=== PATIENT | male | born 1955 | race Two or more races ===

== ENCOUNTER 2024-03-28 11:37 | Inpatient (IN) | payer MEDICARE, OTHER ==
[~2024-03-28] VITALS: Ht 160 cm; Wt 72.6 kg
[2024-03-28] MEDS: MECLIZINE HCL 25 MG TAB PO ONE (12:43)
[2024-03-28 13:10] LABS: Basophils # (auto) 0 10 ^3/uL (0-0.2); Basophils % (auto) 0.4 % (0.0-2.0); Eosinophils # (auto) 0 10 ^3/uL (0-0.8); Eosinophils % (auto) 0.1 % (0.0-7.0); Hematocrit 39.5 % (41.0-53.0); Hemoglobin 13.7 g/dL (13.5-17.5); Lymphocytes # (auto) 1.2 10 ^3/uL (0.4-5.4); Lymphocytes % (auto) 14.1 % (10.0-50.0); Mean Corpuscular Hemoglobin 32.8 pg (28.0-32.0); Mean Corpuscular Hgb Conc. 34.6 g/dL (32.0-36.0); Mean Corpuscular Volume 94.9 fL (80.0-100.0); Monocytes # (auto) 0.3 10 ^3/uL (0-1.3); Monocytes % (auto) 3.8 % (0.0-12.0); Neutrophils # (auto) 6.9 10 ^3/uL (1.6-8.6); Neutrophils % (auto) 81.6 % (37.0-80.0); Red Blood Cells 4.16 10^6/uL (4.5-5.90); Red Cell Distribution Width 13.3 % (11.8-14.3); White Blood Cell 8.4 10^3/uL (4.4-10.8)
[2024-03-28 13:18] LABS: Alanine Aminotransferase 11 U/L (7-40); Albumin 3.9 g/dL (3.2-4.8); Alkaline Phosphatase 96 U/L (46-116); Anion Gap 8 (5-15); Aspartate Aminotransferase 23 U/L (13-40); BUN/Creatinine Ratio 13.4 (10.0-20.0); Blood Urea Nitrogen 11 mg/dL (9-23); Carbon Dioxide 24 mmol/L (20-30); Chloride 108 mmol/L (98-107); Glucose 170 mg/dL (74-106); LDL Cholesterol 95 mg/dL (< 100); Magnesium 1.2 mg/dL (1.6-2.6); Potassium 3.6 mmol/L (3.5-5.1); Sodium 140 mmol/L (136-145); Triglycerides 98 mg/dL (< 150)
[2024-03-28 13:19] LABS: Bilirubin, Total 0.7 mg/dL (0.2-1.0); Cholesterol 156 mg/dL (< 200); HDL Cholesterol 49 mg/dL (40-59)
[2024-03-28 13:22] LABS: Free T3 2.86 pg/mL (2.3-4.2)
[2024-03-28 13:23] LABS: Free T4 (Free Thyroxine) 1.11 ng/dL (0.89-1.76)
[2024-03-28 13:27] LABS: INR 1.01 (0.9-1.15); Partial Thromboplastin Time 23.4 SEC (24.5-34.5); Prothrombin Time 10.7 sec (9.3-11.8)
[2024-03-28] MEDS: MAGNESIUM SULFATE 1GM/100ML 100 ML IV ONE (15:56)
[2024-03-28 16:20] VITALS: PULSE 80; RESP 14; O2SAT 97
[2024-03-28] MEDS: ASPirin 325 MG TAB PO ONE (16:30)
[2024-03-28] MEDS: SODIUM CHLORIDE 0.9% 1,000 ML IV SCH (16:30)
[2024-03-28] MEDS ORDERED: NITROGLYCERIN 0.4 MG SL TAB SL PRN (16:30)
[2024-03-28] MEDS ORDERED: MECLIZINE HCL 25 MG TAB PO PRN (16:30)
[2024-03-28] MEDS: GLUCAGON EMERG KIT 1mg/1ml ONE (16:39)
[2024-03-28] MEDS: GLUCAGON EMERG KIT 1mg/1ml IV ONE (17:14)
[2024-03-28] MEDS: MAGNESIUM SULFATE 1GM/100ML 100 ML IV SCH (17:47)
[2024-03-28] MEDS: hydrALAZINE HCL 20 MG/ML VL IV PRN (23:27)
[2024-03-28 23:59] VITALS: PULSE 78
[2024-03-29] VITALS (8 sets, daily range): BP systolic 104–181; BP diastolic 66–83; PULSE 61–88; RESP 18–23; TEMP 97.6–99.5; O2SAT 90–95
[2024-03-29 05:20] LABS: Basophils # (auto) 0 10 ^3/uL (0-0.2); Basophils % (auto) 0.3 % (0.0-2.0); Eosinophils # (auto) 0 10 ^3/uL (0-0.8); Eosinophils % (auto) 0.1 % (0.0-7.0); Hematocrit 36.9 % (41.0-53.0); Lymphocytes # (auto) 1.2 10 ^3/uL (0.4-5.4); Lymphocytes % (auto) 11.6 % (10.0-50.0); Mean Corpuscular Hemoglobin 32.8 pg (28.0-32.0); Mean Corpuscular Hgb Conc. 35.2 g/dL (32.0-36.0); Mean Corpuscular Volume 93.2 fL (80.0-100.0); Monocytes # (auto) 0.5 10 ^3/uL (0-1.3); Monocytes % (auto) 4.8 % (0.0-12.0); Neutrophils # (auto) 8.6 10 ^3/uL (1.6-8.6); Neutrophils % (auto) 83.2 % (37.0-80.0); Nucleated Red Blood Cells % 0.2 %; Red Blood Cells 3.96 10^6/uL (4.5-5.90); White Blood Cell 10.3 10^3/uL (4.4-10.8)
[2024-03-29 05:38] LABS: Albumin 3.6 g/dL (3.2-4.8); Alkaline Phosphatase 86 U/L (46-116); Anion Gap 8 (5-15); Aspartate Aminotransferase 16 U/L (13-40); BUN/Creatinine Ratio 10.8 (10.0-20.0); Blood Urea Nitrogen 8 mg/dL (9-23); Calcium 8.6 mg/dL (8.7-10.4); Carbon Dioxide 26 mmol/L (20-30); Chloride 105 mmol/L (98-107); Glucose 152 mg/dL (74-106); Potassium 2.9 mmol/L (3.5-5.1); Sodium 139 mmol/L (136-145)
[2024-03-29 05:39] LABS: Bilirubin, Total 0.8 mg/dL (0.2-1.0); Total Protein 6.6 g/dL (5.7-8.2)
[2024-03-29 05:53] LABS: Alanine Aminotransferase < 9 U/L (7-40)
[2024-03-29] MEDS: ASPirin 81 mg TAB PO SCH (10:00)
[2024-03-29] MEDS: ENOXAPARIN SOD 40 MG/0.4 ML SYRINGE SC SCH (10:00)
[2024-03-30] VITALS (24 sets, daily range): BP systolic 110–176; BP diastolic 63–97; PULSE 78–130; RESP 20–36; TEMP 97.5–100.1; O2SAT 88–96
[2024-03-30] MEDS: ACETAMINOPHEN 325 MG TAB PO PRN (02:53)
[2024-03-30] MEDS: FUROSEMIDE INJECTION 10 ML ONE (08:28)
[2024-03-30] MEDS: POTASSIUM CHLORIDE 60 MEQ, LIDOCAINE 1% (LOCAL ANESTH.) 6 ML in SODIUM CHL 0.9% 500 ML IV ONE (08:30)
[2024-03-30] MEDS: methylPREDNISolone SOD SUCC 125 MG/2 ML VL ONE (08:35)
[2024-03-30] MEDS: ALBUTEROL SULF 2.5 MG/0.5ML(0.5%) NEB SOLN ONE (08:54)
[2024-03-30 09:01] LABS: Base Excess -0.7 mmol/L (-2.0-2.0)
[2024-03-30] MEDS: IPRATROPIUM BROM 0.5 MG/2.5ML INH SOL ONE (09:32)
[2024-03-30 09:38] LABS: Hematocrit 42.3 % (41.0-53.0); Hemoglobin 14.9 g/dL (13.5-17.5); Mean Corpuscular Hemoglobin 33.5 pg (28.0-32.0); Mean Corpuscular Hgb Conc. 35.3 g/dL (32.0-36.0); Mean Corpuscular Volume 94.8 fL (80.0-100.0); Red Blood Cells 4.46 10^6/uL (4.5-5.90); Red Cell Distribution Width 13.4 % (11.8-14.3); White Blood Cell 16.6 10^3/uL (4.4-10.8)
[2024-03-30 09:47] LABS: Basophils % (manual) 0 (0.0-2.0); Blast Cells 0; Eosinophils % (manual) 0 (0-7); Metamyelocytes % 0; Myelocytes % 0; Promyelocytes % 0; Reactive Lymphocytes 0
[2024-03-30] MEDS: FUROSEMIDE 100 MG/10ML VIAL IV ONE (09:51)
[2024-03-30] MEDS: methylPREDNISolone SOD SUCC 125 MG/2 ML VL IV ONE (09:54)
[2024-03-30 09:58] LABS: Albumin 4.1 g/dL (3.2-4.8); Alkaline Phosphatase 77 U/L (46-116); Anion Gap 11 (5-15); Aspartate Aminotransferase 20 U/L (13-40); Bilirubin, Total 1.8 mg/dL (0.2-1.0); Calcium 9.1 mg/dL (8.7-10.4); Carbon Dioxide 24 mmol/L (20-30); Chloride 103 mmol/L (98-107); Glucose 226 mg/dL (74-106); Magnesium 1.2 mg/dL (1.6-2.6); Potassium 3.1 mmol/L (3.5-5.1); Sodium 138 mmol/L (136-145); Total Protein 7.6 g/dL (5.7-8.2)
[2024-03-30 09:59] LABS: Alanine Aminotransferase < 9 U/L (7-40)
[2024-03-30] MEDS: FUROSEMIDE 40 MG/4 ML VIAL IV SCH (10:00)
[2024-03-30 10:10] LABS: BUN/Creatinine Ratio 13.7 (10.0-20.0); Band Neutrophils % (manual) 25; Blood Urea Nitrogen 13 mg/dL (9-23); Lymphocytes % (manual) 4 (10.0-50.0); Monocytes % (manual) 3 (0-12)
[2024-03-30 10:11] LABS: Anisocytosis Slight; Platelet Estimate Adequate
[2024-03-30] MEDS: MAGNESIUM SULFATE 1GM/100ML 100 ML IV SCH (12:53)
[2024-03-30] MEDS: ACETYLCYSTEINE 20%(200MG/ML) SOL 4ML NEB SCH (13:48)
[2024-03-30] MEDS: ALBUTEROL SULF 2.5 MG/0.5ML(0.5%) NEB SOLN NEB PRN (13:48)
[2024-03-30] MEDS: IPRATROPIUM BROM 0.5 MG/2.5ML INH SOL NEB PRN (13:48)
[2024-03-30] MEDS: PIPERACILLIN-TAZOB 3.375GM 100 ML IV SCH (14:00)
[2024-03-30] MEDS: MAGNESIUM SULFATE 1GM/100ML 100 ML IV ONE (16:20)
[2024-03-30 19:29] LABS: Base Excess -1.5 mmol/L (-2.0-2.0)
[2024-03-30] MEDS: GLYCOPYRROLATE 0.2 MG/ML 1ML VIAL IV SCH (20:07)
[2024-03-30] MEDS: LABETALOL HCL 20 MG/4 ML VL IV PRN (20:08)
[2024-03-30] MEDS: LABETALOL HCL 20 MG/4 ML VL IV ONE (20:14)
[2024-03-30] MEDS: FUROSEMIDE 40 MG/4 ML VIAL IV ONE (20:29)
[2024-03-30] MEDS: IOHEXOL 350 MG/ML 100ML IJ ONE (21:08)
[2024-03-30] MEDS: FUROSEMIDE 20 MG/2 ML VIAL IV ONE (23:51)
[2024-03-31] VITALS (75 sets, daily range): BP systolic 91–170; BP diastolic 60–102; PULSE 80–130; RESP 14–34; TEMP 98.4–100.2; O2SAT 90–100
[2024-03-31] MEDS: LORazepam 2MG/ML-1ML VIAL ONE (02:35)
[2024-03-31] MEDS: LORazepam 2MG/ML-1ML VIAL IV ONE (02:35)
[2024-03-31 02:54] LABS: Base Excess 1.8 mmol/L (-2.0-2.0)
[2024-03-31 04:29] LABS: Urine Bacteria None Seen /hpf (None Seen)
[2024-03-31 05:03] LABS: Urine Blood TRACE /uL (Negative); Urine Clarity Clear (Clear); Urine Color Light-Yellow (Yellow); Urine Protein, UAD TRACE (Negative); Urine Urobilinogen Normal (Negative); Urine WBC <1 /hpf (0 - 3)
[2024-03-31 06:01] LABS: Anion Gap 10 (5-15); Carbon Dioxide 23 mmol/L (20-30); Chloride 105 mmol/L (98-107); Potassium 3.6 mmol/L (3.5-5.1); Sodium 138 mmol/L (136-145)
[2024-03-31 06:02] LABS: Calcium 9.2 mg/dL (8.7-10.4)
[2024-03-31 06:07] LABS: BUN/Creatinine Ratio 12.6 (10.0-20.0); Blood Urea Nitrogen 16 mg/dL (9-23); Glucose 194 mg/dL (74-106); Magnesium 2.2 mg/dL (1.6-2.6)
[2024-03-31 06:19] LABS: Basophils # (auto) 0 10 ^3/uL (0-0.2); Basophils % (auto) 0.1 % (0.0-2.0); Eosinophils # (auto) 0 10 ^3/uL (0-0.8); Hematocrit 43.5 % (41.0-53.0); Hemoglobin 14.5 g/dL (13.5-17.5); Lymphocytes # (auto) 0.6 10 ^3/uL (0.4-5.4); Lymphocytes % (auto) 7.1 % (10.0-50.0); Mean Corpuscular Hemoglobin 32.3 pg (28.0-32.0); Mean Corpuscular Hgb Conc. 33.3 g/dL (32.0-36.0); Mean Corpuscular Volume 97.1 fL (80.0-100.0); Monocytes # (auto) 0.3 10 ^3/uL (0-1.3); Monocytes % (auto) 3.6 % (0.0-12.0); Neutrophils # (auto) 7.8 10 ^3/uL (1.6-8.6); Neutrophils % (auto) 89.2 % (37.0-80.0); Nucleated Red Blood Cells % 0.1 %; Red Blood Cells 4.48 10^6/uL (4.5-5.90); Red Cell Distribution Width 13.8 % (11.8-14.3); White Blood Cell 8.8 10^3/uL (4.4-10.8)
[2024-03-31] MEDS: ETOMIDATE (2MG/ML) 20ML VIAL IV ONE ×2 (09:45→09:56)
[2024-03-31] MEDS: ROCURONIUM 10MG/ML 10ML VIAL IV ONE ×2 (09:45→09:56)
[2024-03-31] MEDS: POTASSIUM CHL 20MEQ/100ML 100 ML IV SCH ×2 (13:52→18:43)
[2024-03-31 15:19] LABS: Base Excess 3.9 mmol/L (-2.0-2.0)
[2024-04-01] VITALS (103 sets, daily range): BP systolic 88–197; BP diastolic 53–103; PULSE 76–133; RESP 14–28; TEMP 97.8–99.2; O2SAT 93–99
[2024-04-01 04:11] LABS: Basophils # (auto) 0 10 ^3/uL (0-0.2); Basophils % (auto) 0.1 % (0.0-2.0); Eosinophils # (auto) 0 10 ^3/uL (0-0.8); Eosinophils % (auto) 0.1 % (0.0-7.0); Hematocrit 36.6 % (41.0-53.0); Hemoglobin 12.7 g/dL (13.5-17.5); Lymphocytes # (auto) 1.2 10 ^3/uL (0.4-5.4); Lymphocytes % (auto) 14.6 % (10.0-50.0); Mean Corpuscular Hemoglobin 33.3 pg (28.0-32.0); Mean Corpuscular Hgb Conc. 34.7 g/dL (32.0-36.0); Mean Corpuscular Volume 96.1 fL (80.0-100.0); Monocytes # (auto) 0.4 10 ^3/uL (0-1.3); Monocytes % (auto) 4.9 % (0.0-12.0); Neutrophils # (auto) 6.3 10 ^3/uL (1.6-8.6); Neutrophils % (auto) 80.3 % (37.0-80.0); Nucleated Red Blood Cells % 0.1 %; Red Blood Cells 3.81 10^6/uL (4.5-5.90); Red Cell Distribution Width 13.3 % (11.8-14.3); White Blood Cell 7.9 10^3/uL (4.4-10.8)
[2024-04-01 04:25] LABS: Albumin 3.5 g/dL (3.2-4.8); Alkaline Phosphatase 41 U/L (46-116); Anion Gap 11 (5-15); Aspartate Aminotransferase 15 U/L (13-40); Bilirubin, Total 0.9 mg/dL (0.2-1.0); Calcium 9.7 mg/dL (8.7-10.4); Carbon Dioxide 27 mmol/L (20-30); Chloride 105 mmol/L (98-107); Glucose 178 mg/dL (74-106); Potassium 2.7 mmol/L (3.5-5.1); Sodium 143 mmol/L (136-145); Total Protein 6.8 g/dL (5.7-8.2)
[2024-04-01 04:35] LABS: Alanine Aminotransferase < 9 U/L (7-40); Blood Urea Nitrogen 38 mg/dL (9-23)
[2024-04-01 07:32] LABS: Base Excess 0.6 mmol/L (-2.0-2.0)
[2024-04-01] MEDS ORDERED: POTASSIUM CHL 20MEQ/100ML 100 ML IV SCH (08:30)
[2024-04-01] MEDS: MAGNESIUM SULFATE 1GM/100ML 100 ML IV SCH (09:49)
[2024-04-01 10:45] LABS: Creatinine, Urine 128.84 mg/dL (30.0-125.0)
[2024-04-01 10:56] LABS: Base Excess 4.8 mmol/L (-2.0-2.0)
[2024-04-01] MEDS: SODIUM CHLORIDE 0.9% 1,000 ML IV SCH (11:53)
[2024-04-01] MEDS: MORPHINE SULFATE INJ 2 MG/ml SYRG IV PRN (18:41)
[2024-04-02] VITALS (48 sets, daily range): BP systolic 125–178; BP diastolic 67–127; PULSE 82–112; RESP 14–25; TEMP 97.8–98.9; O2SAT 92–98
[2024-04-02 04:53] LABS: Anion Gap 11 (5-15); Calcium 9.5 mg/dL (8.7-10.4); Carbon Dioxide 29 mmol/L (20-30); Chloride 107 mmol/L (98-107); Potassium 3.3 mmol/L (3.5-5.1); Sodium 147 mmol/L (136-145)
[2024-04-02 04:58] LABS: Basophils # (auto) 0 10 ^3/uL (0-0.2); Basophils % (auto) 0.1 % (0.0-2.0); Eosinophils # (auto) 0 10 ^3/uL (0-0.8); Hematocrit 38.4 % (41.0-53.0); Monocytes # (auto) 0.6 10 ^3/uL (0-1.3)
[2024-04-02 04:59] LABS: Blood Urea Nitrogen 40 mg/dL (9-23); Glucose 205 mg/dL (74-106)
[2024-04-02 05:01] LABS: Hemoglobin 13.3 g/dL (13.5-17.5); Lymphocytes % (auto) 9.8 % (10.0-50.0); Mean Corpuscular Hemoglobin 33.6 pg (28.0-32.0); Mean Corpuscular Hgb Conc. 34.7 g/dL (32.0-36.0); Mean Corpuscular Volume 96.7 fL (80.0-100.0); Monocytes % (auto) 5.7 % (0.0-12.0); Neutrophils # (auto) 8.6 10 ^3/uL (1.6-8.6); Neutrophils % (auto) 84.4 % (37.0-80.0); Nucleated Red Blood Cells % 0.1 %; Red Blood Cells 3.97 10^6/uL (4.5-5.90); Red Cell Distribution Width 13.6 % (11.8-14.3); White Blood Cell 10.2 10^3/uL (4.4-10.8)
[2024-04-02] MEDS: POTASSIUM CHLORIDE 40 MEQ, LIDOCAINE 1% (LOCAL ANESTH.) 4 ML in SODIUM CHL 0.9% 250 ML IV ONE (09:43)
[2024-04-02] MEDS: LORazepam 2MG/ML-1ML VIAL IV PRN (15:49)
[2024-04-02] MEDS ORDERED: CARVEDILOL 12.5 MG TAB PO SCH (22:00)
[2024-04-02] MEDS ORDERED: NIFEdipine ER 30 MG TAB PO SCH (22:00)
[2024-04-02] MEDS: MORPHINE SULFATE INJ 2 MG/ml SYRG IV PRN (22:32)
[2024-04-03] VITALS (28 sets, daily range): BP systolic 141–178; BP diastolic 86–108; PULSE 77–113; RESP 12–24; TEMP 97–98.3; O2SAT 91–99
[2024-04-03 05:17] LABS: Chloride 113 mmol/L (98-107); Potassium 3.9 mmol/L (3.5-5.1)
[2024-04-03 05:18] LABS: Anion Gap 7 (5-15); Carbon Dioxide 34 mmol/L (20-30)
[2024-04-03 05:23] LABS: Glucose 218 mg/dL (74-106)
[2024-04-03 05:24] LABS: BUN/Creatinine Ratio 30.6 (10.0-20.0); Blood Urea Nitrogen 34 mg/dL (9-23); Magnesium 2.1 mg/dL (1.6-2.6)
[2024-04-03 05:26] LABS: Hematocrit 40.3 % (41.0-53.0); Hemoglobin 13.7 g/dL (13.5-17.5); Mean Corpuscular Hemoglobin 32.7 pg (28.0-32.0); Mean Corpuscular Volume 96.3 fL (80.0-100.0); Red Blood Cells 4.19 10^6/uL (4.5-5.90); Red Cell Distribution Width 14.2 % (11.8-14.3); White Blood Cell 9.3 10^3/uL (4.4-10.8)
[2024-04-03 05:33] LABS: Basophils % (manual) 0 (0.0-2.0); Blast Cells 0; Eosinophils % (manual) 0 (0-7); Metamyelocytes % 0; Myelocytes % 0; Promyelocytes % 0; Reactive Lymphocytes 0
[2024-04-03 05:39] LABS: Sodium 154 mmol/L (136-145)
[2024-04-03] MEDS: Jevity 1.2 Cal/Fiber 1 Liter GT SCH (06:09)
[2024-04-03] MEDS: FREE WATER GT SCH (07:45)
[2024-04-03 08:12] LABS: Band Neutrophils % (manual) 1; Lymphocytes % (manual) 8 (10.0-50.0); Monocytes % (manual) 5 (0-12); Platelet Estimate Adequate; RBC Morphology Normal
[2024-04-03] MEDS ORDERED: GLYCOPYRROLATE 0.2 MG/ML 1ML VIAL IV PRN (09:30)
[2024-04-03] MEDS: ASPirin 81 mg TAB PO SCH (10:04)
[2024-04-03] MEDS: ENOXAPARIN SOD 40 MG/0.4 ML SYRINGE SC SCH (10:05)
[2024-04-03] MEDS: FUROSEMIDE 40 MG/4 ML VIAL IV ONE (10:05)
[2024-04-04] VITALS (25 sets, daily range): BP systolic 122–162; BP diastolic 75–111; PULSE 101–116; RESP 14–27; TEMP 97.3–98.4; O2SAT 88–98
[2024-04-04 04:40] LABS: Chloride 112 mmol/L (98-107); Potassium 3.7 mmol/L (3.5-5.1); Sodium 153 mmol/L (136-145)
[2024-04-04 04:41] LABS: Anion Gap 9 (5-15); Calcium 10.1 mg/dL (8.7-10.4); Carbon Dioxide 32 mmol/L (20-30)
[2024-04-04 04:46] LABS: BUN/Creatinine Ratio 28.6 (10.0-20.0); Blood Urea Nitrogen 32 mg/dL (9-23); Glucose 301 mg/dL (74-106)
[2024-04-04 04:50] LABS: Basophils # (auto) 0 10 ^3/uL (0-0.2); Basophils % (auto) 0.1 % (0.0-2.0); Eosinophils # (auto) 0 10 ^3/uL (0-0.8); Eosinophils % (auto) 0.4 % (0.0-7.0); Hematocrit 42.8 % (41.0-53.0); Hemoglobin 14.2 g/dL (13.5-17.5); Lymphocytes # (auto) 1.2 10 ^3/uL (0.4-5.4); Mean Corpuscular Hemoglobin 32.3 pg (28.0-32.0); Mean Corpuscular Hgb Conc. 33.1 g/dL (32.0-36.0); Mean Corpuscular Volume 97.6 fL (80.0-100.0); Monocytes # (auto) 0.6 10 ^3/uL (0-1.3); Neutrophils # (auto) 8.8 10 ^3/uL (1.6-8.6); Neutrophils % (auto) 82.5 % (37.0-80.0); Nucleated Red Blood Cells % 0.1 %; Red Blood Cells 4.39 10^6/uL (4.5-5.90); Red Cell Distribution Width 14.4 % (11.8-14.3); White Blood Cell 10.6 10^3/uL (4.4-10.8)
[2024-04-04] MEDS: FUROSEMIDE 40 MG/4 ML VIAL IV ONE (08:01)
[2024-04-04] MEDS: IOHEXOL 350 MG/ML 100ML IJ ONE ×2 (09:32→09:58)
[2024-04-04] MEDS: FREE WATER GT SCH (10:00)
[2024-04-05] VITALS (33 sets, daily range): BP systolic 100–145; BP diastolic 65–92; PULSE 67–123; RESP 11–27; TEMP 97.3–98.8; O2SAT 88–100
[2024-04-05 05:06] LABS: Basophils # (auto) 0 10 ^3/uL (0-0.2); Basophils % (auto) 0.2 % (0.0-2.0); Eosinophils # (auto) 0.1 10 ^3/uL (0-0.8); Eosinophils % (auto) 1.2 % (0.0-7.0); Hematocrit 41.3 % (41.0-53.0); Hemoglobin 13.8 g/dL (13.5-17.5); Lymphocytes # (auto) 1.4 10 ^3/uL (0.4-5.4); Lymphocytes % (auto) 12.8 % (10.0-50.0); Mean Corpuscular Hemoglobin 32.6 pg (28.0-32.0); Mean Corpuscular Hgb Conc. 33.4 g/dL (32.0-36.0); Mean Corpuscular Volume 97.4 fL (80.0-100.0); Monocytes # (auto) 0.6 10 ^3/uL (0-1.3); Monocytes % (auto) 5.9 % (0.0-12.0); Neutrophils # (auto) 8.7 10 ^3/uL (1.6-8.6); Neutrophils % (auto) 79.9 % (37.0-80.0); Red Blood Cells 4.25 10^6/uL (4.5-5.90); Red Cell Distribution Width 13.8 % (11.8-14.3); White Blood Cell 10.9 10^3/uL (4.4-10.8)
[2024-04-05 05:23] LABS: Anion Gap 8 (5-15); Carbon Dioxide 34 mmol/L (20-30); Chloride 110 mmol/L (98-107); Potassium 3.6 mmol/L (3.5-5.1); Sodium 152 mmol/L (136-145)
[2024-04-05 05:24] LABS: Calcium 9.7 mg/dL (8.7-10.4)
[2024-04-05 05:29] LABS: BUN/Creatinine Ratio 28.9 (10.0-20.0); Glucose 357 mg/dL (74-106)
[2024-04-05 05:30] LABS: Blood Urea Nitrogen 43 mg/dL (9-23)
[2024-04-05] MEDS: FUROSEMIDE 40 MG/4 ML VIAL IV SCH (06:10)
[2024-04-05] MEDS ORDERED: FUROSEMIDE 40 MG/4 ML VIAL IV SCH (10:00)
[2024-04-05] MEDS ORDERED: DEXTROSE (50%) 50ML SYRG IV PRN (10:45)
[2024-04-05] MEDS: InsuLIN REG 1unit/0.01ml Soln (100units/ml) SC SCH (12:16)
[2024-04-05] MEDS: ACCU-CHEK COMFORT CURVE STRIP VI SCH (12:18)
[2024-04-05] MEDS: D5W/SOD CHL 0.45% 1,000 ML IV SCH (13:00)
[2024-04-06] VITALS (50 sets, daily range): BP systolic 102–149; BP diastolic 61–91; PULSE 76–104; RESP 11–20; TEMP 96.9–98.9; O2SAT 79–100
[2024-04-06 05:54] LABS: Basophils # (auto) 0 10 ^3/uL (0-0.2); Basophils % (auto) 0.2 % (0.0-2.0); Eosinophils # (auto) 0.4 10 ^3/uL (0-0.8); Eosinophils % (auto) 3.7 % (0.0-7.0); Hematocrit 42.6 % (41.0-53.0); Hemoglobin 13.9 g/dL (13.5-17.5); Lymphocytes # (auto) 1.6 10 ^3/uL (0.4-5.4); Lymphocytes % (auto) 14.1 % (10.0-50.0); Mean Corpuscular Hemoglobin 32.1 pg (28.0-32.0); Mean Corpuscular Hgb Conc. 32.6 g/dL (32.0-36.0); Mean Corpuscular Volume 98.4 fL (80.0-100.0); Monocytes # (auto) 0.6 10 ^3/uL (0-1.3); Neutrophils # (auto) 8.9 10 ^3/uL (1.6-8.6); Nucleated Red Blood Cells % 0.1 %; Red Blood Cells 4.33 10^6/uL (4.5-5.90); Red Cell Distribution Width 14.1 % (11.8-14.3); White Blood Cell 11.5 10^3/uL (4.4-10.8)
[2024-04-06 06:11] LABS: Albumin 3.6 g/dL (3.2-4.8); Alkaline Phosphatase 68 U/L (46-116); Anion Gap 7 (5-15); Aspartate Aminotransferase 18 U/L (13-40); BUN/Creatinine Ratio 32.2 (10.0-20.0); Blood Urea Nitrogen 38 mg/dL (9-23); Calcium 9.7 mg/dL (8.7-10.4); Carbon Dioxide 36 mmol/L (20-30); Chloride 112 mmol/L (98-107); Magnesium 2.2 mg/dL (1.6-2.6); Potassium 3.4 mmol/L (3.5-5.1); Sodium 155 mmol/L (136-145)
[2024-04-06 06:12] LABS: Alanine Aminotransferase < 9 U/L (7-40); Bilirubin, Total 0.6 mg/dL (0.2-1.0); Glucose 162 mg/dL (74-106); Total Protein 7.3 g/dL (5.7-8.2)
[2024-04-06] MEDS: FUROSEMIDE 40 MG/4 ML VIAL IV ONE (11:07)
[2024-04-06] MEDS: D5W 5% 1,000 ML IV SCH (11:08)
[2024-04-06] MEDS: POTASSIUM CHL 20MEQ/100ML 100 ML IV SCH (14:29)
[2024-04-07] VITALS (33 sets, daily range): BP systolic 100–164; BP diastolic 50–98; PULSE 78–106; RESP 11–22; TEMP 97.6–98.5; O2SAT 93–100
[2024-04-07 05:37] LABS: Basophils # (auto) 0 10 ^3/uL (0-0.2); Basophils % (auto) 0.3 % (0.0-2.0); Eosinophils # (auto) 0.4 10 ^3/uL (0-0.8); Eosinophils % (auto) 3.2 % (0.0-7.0); Hemoglobin 13.4 g/dL (13.5-17.5); Lymphocytes # (auto) 1.9 10 ^3/uL (0.4-5.4); Lymphocytes % (auto) 14.4 % (10.0-50.0); Mean Corpuscular Hemoglobin 32.9 pg (28.0-32.0); Mean Corpuscular Hgb Conc. 33.5 g/dL (32.0-36.0); Mean Corpuscular Volume 98.2 fL (80.0-100.0); Monocytes # (auto) 0.6 10 ^3/uL (0-1.3); Monocytes % (auto) 4.9 % (0.0-12.0); Neutrophils # (auto) 10.1 10 ^3/uL (1.6-8.6); Neutrophils % (auto) 77.2 % (37.0-80.0); Nucleated Red Blood Cells % 0.1 %; Red Blood Cells 4.08 10^6/uL (4.5-5.90); Red Cell Distribution Width 13.5 % (11.8-14.3)
[2024-04-07 05:39] LABS: Chloride 111 mmol/L (98-107); Potassium 3.5 mmol/L (3.5-5.1); Sodium 148 mmol/L (136-145)
[2024-04-07 05:40] LABS: Anion Gap 6 (5-15); Calcium 9.6 mg/dL (8.7-10.4); Carbon Dioxide 31 mmol/L (20-30)
[2024-04-07 05:45] LABS: BUN/Creatinine Ratio 22.3 (10.0-20.0); Blood Urea Nitrogen 29 mg/dL (9-23); Glucose 132 mg/dL (74-106)
[2024-04-07 05:46] LABS: Magnesium 1.9 mg/dL (1.6-2.6)
[2024-04-07] MEDS: FUROSEMIDE 40 MG/4 ML VIAL IV SCH (09:17)
[2024-04-07] MEDS: SODIUM CHLORIDE 0.9% 500 ML IV ONE (13:15)
[2024-04-08] VITALS (31 sets, daily range): BP systolic 102–147; BP diastolic 63–91; PULSE 68–93; RESP 10–20; TEMP 97.6–98.1; O2SAT 91–100
[2024-04-08 05:23] LABS: Basophils # (auto) 0 10 ^3/uL (0-0.2); Basophils % (auto) 0.4 % (0.0-2.0); Eosinophils # (auto) 0.3 10 ^3/uL (0-0.8); Eosinophils % (auto) 2.7 % (0.0-7.0); Hematocrit 37.5 % (41.0-53.0); Hemoglobin 12.6 g/dL (13.5-17.5); Lymphocytes # (auto) 1.6 10 ^3/uL (0.4-5.4); Lymphocytes % (auto) 15.5 % (10.0-50.0); Mean Corpuscular Hemoglobin 32.4 pg (28.0-32.0); Mean Corpuscular Hgb Conc. 33.4 g/dL (32.0-36.0); Mean Corpuscular Volume 96.7 fL (80.0-100.0); Monocytes # (auto) 0.4 10 ^3/uL (0-1.3); Monocytes % (auto) 4.2 % (0.0-12.0); Neutrophils # (auto) 8.2 10 ^3/uL (1.6-8.6); Neutrophils % (auto) 77.2 % (37.0-80.0); Nucleated Red Blood Cells % 0.1 %; Red Blood Cells 3.88 10^6/uL (4.5-5.90); Red Cell Distribution Width 13.4 % (11.8-14.3); White Blood Cell 10.6 10^3/uL (4.4-10.8)
[2024-04-08 05:59] LABS: Albumin 3.2 g/dL (3.2-4.8); Alkaline Phosphatase 68 U/L (46-116); Anion Gap 6 (5-15); Aspartate Aminotransferase 19 U/L (13-40); BUN/Creatinine Ratio 27.6 (10.0-20.0); Blood Urea Nitrogen 34 mg/dL (9-23); Calcium 9.2 mg/dL (8.7-10.4); Carbon Dioxide 33 mmol/L (20-30); Chloride 108 mmol/L (98-107); Glucose 190 mg/dL (74-106); Magnesium 1.9 mg/dL (1.6-2.6); Potassium 3.2 mmol/L (3.5-5.1); Sodium 147 mmol/L (136-145)
[2024-04-08 06:00] LABS: Bilirubin, Total 1.2 mg/dL (0.2-1.0); Total Protein 6.8 g/dL (5.7-8.2)
[2024-04-08 06:02] LABS: Alanine Aminotransferase < 9 U/L (7-40)
[2024-04-08] MEDS: POTASSIUM CHLORIDE 40 MEQ, LIDOCAINE 1% (LOCAL ANESTH.) 4 ML in SODIUM CHL 0.9% 250 ML IV ONE (10:10)
[2024-04-08] MEDS ORDERED: CLINIMIX PER PHARMACY 0 ML IV SCH (14:15)
[2024-04-08] MEDS ORDERED: DEXTROSE (50%) 50ML SYRG IV SCH (15:30)
[2024-04-08] MEDS: ACCU-CHEK COMFORT CURVE STRIP VI SCH (17:54)
[2024-04-08] MEDS: InsuLIN REG 1unit/0.01ml Soln (100units/ml) SC SCH (18:00)
[2024-04-08] MEDS: AMINO ACID INFUSION IN D10W 1,000 ML IV SCH (20:15)
[2024-04-09] VITALS (31 sets, daily range): BP systolic 95–162; BP diastolic 51–86; PULSE 68–90; RESP 9–23; TEMP 97.6–98.5; O2SAT 92–100
[2024-04-09] MEDS: D5W 5% 1,000 ML IV SCH ×2 (00:50→08:40)
[2024-04-09 05:29] LABS: Albumin 3.2 g/dL (3.2-4.8); Alkaline Phosphatase 69 U/L (46-116); Anion Gap 4 (5-15); Aspartate Aminotransferase 20 U/L (13-40); BUN/Creatinine Ratio 22.7 (10.0-20.0); Bilirubin, Total 1.2 mg/dL (0.2-1.0); Blood Urea Nitrogen 29 mg/dL (9-23); Calcium 9.1 mg/dL (8.7-10.4); Carbon Dioxide 34 mmol/L (20-30); Chloride 109 mmol/L (98-107); Glucose 185 mg/dL (74-106); Magnesium 1.9 mg/dL (1.6-2.6); Phosphorus 2.6 mg/dL (2.4-5.1); Potassium 3.3 mmol/L (3.5-5.1); Sodium 147 mmol/L (136-145)
[2024-04-09 05:30] LABS: Alanine Aminotransferase < 9 U/L (7-40); Total Protein 6.6 g/dL (5.7-8.2)
[2024-04-09] MEDS: POTASSIUM CHLORIDE 40 MEQ, LIDOCAINE 1% (LOCAL ANESTH.) 4 ML in SODIUM CHL 0.9% 250 ML IV ONE (08:36)
[2024-04-10] VITALS (17 sets, daily range): BP systolic 94–162; BP diastolic 48–118; PULSE 70–84; RESP 11–18; TEMP 97.6–98.4; O2SAT 92–100
[2024-04-10 05:35] LABS: Basophils # (auto) 0 10 ^3/uL (0-0.2); Basophils % (auto) 0.4 % (0.0-2.0); Eosinophils # (auto) 0.1 10 ^3/uL (0-0.8); Eosinophils % (auto) 1.3 % (0.0-7.0); Hematocrit 35.1 % (41.0-53.0); Hemoglobin 12.1 g/dL (13.5-17.5); Lymphocytes % (auto) 9.9 % (10.0-50.0); Mean Corpuscular Hemoglobin 32.9 pg (28.0-32.0); Mean Corpuscular Hgb Conc. 34.5 g/dL (32.0-36.0); Mean Corpuscular Volume 95.3 fL (80.0-100.0); Monocytes # (auto) 0.4 10 ^3/uL (0-1.3); Monocytes % (auto) 4.2 % (0.0-12.0); Neutrophils # (auto) 8.7 10 ^3/uL (1.6-8.6); Neutrophils % (auto) 84.2 % (37.0-80.0); Red Blood Cells 3.68 10^6/uL (4.5-5.90); Red Cell Distribution Width 12.9 % (11.8-14.3); White Blood Cell 10.3 10^3/uL (4.4-10.8)
[2024-04-10 05:39] LABS: Alanine Aminotransferase 11 U/L (7-40); Albumin 3.1 g/dL (3.2-4.8); Alkaline Phosphatase 74 U/L (46-116); Anion Gap 5 (5-15); Aspartate Aminotransferase 27 U/L (13-40); BUN/Creatinine Ratio 23.7 (10.0-20.0); Blood Urea Nitrogen 23 mg/dL (9-23); Calcium 8.8 mg/dL (8.7-10.4); Carbon Dioxide 29 mmol/L (20-30); Chloride 105 mmol/L (98-107); Glucose 247 mg/dL (74-106); Magnesium 1.5 mg/dL (1.6-2.6); Potassium 3.1 mmol/L (3.5-5.1); Sodium 139 mmol/L (136-145)
[2024-04-10 05:40] LABS: Bilirubin, Total 1.2 mg/dL (0.2-1.0); Phosphorus 1.8 mg/dL (2.4-5.1); Total Protein 6.6 g/dL (5.7-8.2)
[2024-04-10] MEDS: POTASSIUM CHL 20MEQ/100ML 100 ML IV ONE ×2 (07:02→11:16)
[2024-04-10] MEDS: MAGNESIUM SULFATE 1GM/100ML 100 ML IV SCH (09:11)
[2024-04-10] MEDS: POTASSIUM PHOSPHATE 17.6 MEQ in SODIUM CHL 0.9% 100 ML IV ONE (11:07)
[2024-04-11] VITALS (13 sets, daily range): BP systolic 90–108; BP diastolic 54–64; PULSE 20–79; RESP 15–71; TEMP 97.4–98.7; O2SAT 90–99
[2024-04-11 07:10] LABS: Basophils # (auto) 0.1 10 ^3/uL (0-0.2); Basophils % (auto) 0.7 % (0.0-2.0); Eosinophils # (auto) 0.2 10 ^3/uL (0-0.8); Eosinophils % (auto) 2.1 % (0.0-7.0); Hematocrit 31.2 % (41.0-53.0); Lymphocytes # (auto) 1.3 10 ^3/uL (0.4-5.4); Lymphocytes % (auto) 13.8 % (10.0-50.0); Mean Corpuscular Hemoglobin 32.9 pg (28.0-32.0); Mean Corpuscular Hgb Conc. 35.2 g/dL (32.0-36.0); Mean Corpuscular Volume 93.4 fL (80.0-100.0); Monocytes # (auto) 0.5 10 ^3/uL (0-1.3); Neutrophils # (auto) 7.3 10 ^3/uL (1.6-8.6); Neutrophils % (auto) 78.4 % (37.0-80.0); Nucleated Red Blood Cells % 0.1 %; Red Blood Cells 3.35 10^6/uL (4.5-5.90); Red Cell Distribution Width 12.6 % (11.8-14.3); White Blood Cell 9.3 10^3/uL (4.4-10.8)
[2024-04-11 07:28] LABS: Alanine Aminotransferase 11 U/L (7-40); Alkaline Phosphatase 79 U/L (46-116); Anion Gap 6 (5-15); Aspartate Aminotransferase 27 U/L (13-40); BUN/Creatinine Ratio 21.6 (10.0-20.0); Blood Urea Nitrogen 22 mg/dL (9-23); Calcium 8.7 mg/dL (8.7-10.4); Carbon Dioxide 30 mmol/L (20-30); Chloride 102 mmol/L (98-107); Glucose 152 mg/dL (74-106); Magnesium 1.4 mg/dL (1.6-2.6); Phosphorus 2.1 mg/dL (2.4-5.1); Potassium 3.1 mmol/L (3.5-5.1); Sodium 138 mmol/L (136-145); Total Protein 6.3 g/dL (5.7-8.2)
[2024-04-11] MEDS: POTASSIUM CHL 20MEQ/100ML 100 ML IV SCH (11:31)
[2024-04-11 11:44] LABS: Hemoglobin 10.9 g/dL (13.5-17.5)
[2024-04-11] MEDS: MAGNESIUM SULFATE 1GM/100ML 100 ML IV SCH (16:45)
[2024-04-11 17:56] LABS: Hematocrit 31.1 % (41.0-53.0); Hemoglobin 10.7 g/dL (13.5-17.5)
[2024-04-11] MEDS: POTASSIUM PHOSPHATE 22 MEQ in SODIUM CHL 0.9% 100 ML IV ONE (18:00)
[2024-04-11 23:21] LABS: Hematocrit 32.3 % (41.0-53.0); Hemoglobin 11.3 g/dL (13.5-17.5)
[2024-04-12] VITALS (12 sets, daily range): BP systolic 94–114; BP diastolic 51–74; PULSE 60–79; RESP 16–20; TEMP 97.2–98.7; O2SAT 94–98
[2024-04-12 07:11] LABS: Alanine Aminotransferase 10 U/L (7-40); Albumin 2.9 g/dL (3.2-4.8); Alkaline Phosphatase 79 U/L (46-116); Aspartate Aminotransferase 22 U/L (13-40); BUN/Creatinine Ratio 18.9 (10.0-20.0); Blood Urea Nitrogen 17 mg/dL (9-23); Calcium 8.5 mg/dL (8.7-10.4); Chloride 105 mmol/L (98-107); Glucose 195 mg/dL (74-106); Magnesium 1.6 mg/dL (1.6-2.6); Potassium 3.6 mmol/L (3.5-5.1); Sodium 137 mmol/L (136-145)
[2024-04-12 07:13] LABS: Bilirubin, Total 0.6 mg/dL (0.2-1.0); Phosphorus 1.6 mg/dL (2.4-5.1); Total Protein 6.1 g/dL (5.7-8.2)
[2024-04-12 07:18] LABS: Basophils # (auto) 0 10 ^3/uL (0-0.2); Basophils % (auto) 0.6 % (0.0-2.0); Eosinophils # (auto) 0.1 10 ^3/uL (0-0.8); Eosinophils % (auto) 1.8 % (0.0-7.0); Hematocrit 29.9 % (41.0-53.0); Hemoglobin 10.5 g/dL (13.5-17.5); Lymphocytes # (auto) 1.1 10 ^3/uL (0.4-5.4); Mean Corpuscular Hemoglobin 33.1 pg (28.0-32.0); Mean Corpuscular Hgb Conc. 35.3 g/dL (32.0-36.0); Monocytes # (auto) 0.5 10 ^3/uL (0-1.3); Monocytes % (auto) 5.8 % (0.0-12.0); Neutrophils # (auto) 6.3 10 ^3/uL (1.6-8.6); Neutrophils % (auto) 77.8 % (37.0-80.0); Nucleated Red Blood Cells % 0.1 %; Red Blood Cells 3.18 10^6/uL (4.5-5.90); Red Cell Distribution Width 12.6 % (11.8-14.3); White Blood Cell 8.1 10^3/uL (4.4-10.8)
[2024-04-12 07:28] LABS: Anion Gap 6 (5-15); Carbon Dioxide 26 mmol/L (20-30)
[2024-04-12] MEDS: MAGNESIUM SULFATE 1GM/100ML 100 ML IV SCH (15:50)
[2024-04-12] MEDS: POTASSIUM PHOSPHATE 44 MEQ in D5W 5% 250 ML IV ONE (18:01)
[2024-04-13] VITALS (13 sets, daily range): BP systolic 106–142; BP diastolic 65–81; PULSE 68–110; RESP 14–22; TEMP 97.6–98.7; O2SAT 92–100
[2024-04-13 07:21] LABS: Potassium 3.5 mmol/L (3.5-5.1)
[2024-04-13 07:22] LABS: Calcium 8.9 mg/dL (8.7-10.4)
[2024-04-13 07:27] LABS: BUN/Creatinine Ratio 13.9 (10.0-20.0); Magnesium 1.6 mg/dL (1.6-2.6)
[2024-04-13 07:28] LABS: Albumin 3.2 g/dL (3.2-4.8)
[2024-04-13 07:29] LABS: Phosphorus 2.3 mg/dL (2.4-5.1)
[2024-04-13] MEDS: POTASSIUM PHOSPHATE 26.4 MEQ in SODIUM CHL 0.9% 100 ML IV ONE (09:45)
[2024-04-13] MEDS: MAGNESIUM SULFATE 1GM/100ML 100 ML IV SCH (18:43)
[2024-04-14] VITALS (13 sets, daily range): BP systolic 108–148; BP diastolic 60–90; PULSE 69–89; RESP 16–20; TEMP 97.5–98.4; O2SAT 91–97
[2024-04-14 08:38] LABS: Alanine Aminotransferase 12 U/L (7-40); Albumin 3.4 g/dL (3.2-4.8); Alkaline Phosphatase 109 U/L (46-116); Anion Gap 4 (5-15); Aspartate Aminotransferase 29 U/L (13-40); BUN/Creatinine Ratio 18.4 (10.0-20.0); Bilirubin, Total 0.5 mg/dL (0.2-1.0); Blood Urea Nitrogen 14 mg/dL (9-23); Carbon Dioxide 28 mmol/L (20-30); Chloride 103 mmol/L (98-107); Glucose 177 mg/dL (74-106); Magnesium 1.6 mg/dL (1.6-2.6); Phosphorus 2.2 mg/dL (2.4-5.1); Potassium 3.5 mmol/L (3.5-5.1); Sodium 135 mmol/L (136-145); Total Protein 7.2 g/dL (5.7-8.2)
[2024-04-14] MEDS: MAGNESIUM SULFATE 1GM/100ML 100 ML IV SCH (17:37)
[2024-04-14] MEDS: POTASSIUM PHOSPHATE 22 MEQ in SODIUM CHL 0.9% 100 ML IV ONE (17:54)
[2024-04-15] VITALS (14 sets, daily range): BP systolic 101–143; BP diastolic 61–87; PULSE 73–112; RESP 17–20; TEMP 97.5–98.7; O2SAT 91–98
[2024-04-15 06:20] LABS: Alanine Aminotransferase 11 U/L (7-40); Alkaline Phosphatase 104 U/L (46-116); Anion Gap 8 (5-15); Blood Urea Nitrogen 18 mg/dL (9-23); Calcium 8.9 mg/dL (8.7-10.4); Carbon Dioxide 29 mmol/L (20-30); Chloride 99 mmol/L (98-107); Glucose 157 mg/dL (74-106); Magnesium 1.8 mg/dL (1.6-2.6); Potassium 3.5 mmol/L (3.5-5.1); Sodium 136 mmol/L (136-145)
[2024-04-15 06:21] LABS: Albumin 3.2 g/dL (3.2-4.8); Aspartate Aminotransferase 22 U/L (13-40); Bilirubin, Total 0.6 mg/dL (0.2-1.0); Phosphorus 2.7 mg/dL (2.4-5.1)
[2024-04-16] VITALS (8 sets, daily range): BP systolic 95–131; BP diastolic 53–72; PULSE 67–83; RESP 16–18; TEMP 97.7–98.4; O2SAT 91–97
[2024-04-16 06:50] LABS: Albumin 3.2 g/dL (3.2-4.8); Alkaline Phosphatase 94 U/L (46-116); Anion Gap 7 (5-15); Aspartate Aminotransferase 14 U/L (13-40); BUN/Creatinine Ratio 25.3 (10.0-20.0); Bilirubin, Total 0.5 mg/dL (0.2-1.0); Blood Urea Nitrogen 23 mg/dL (9-23); Calcium 8.9 mg/dL (8.7-10.4); Carbon Dioxide 28 mmol/L (20-30); Chloride 98 mmol/L (98-107); Glucose 186 mg/dL (74-106); Magnesium 1.6 mg/dL (1.6-2.6); Phosphorus 2.5 mg/dL (2.4-5.1); Potassium 3.3 mmol/L (3.5-5.1); Sodium 133 mmol/L (136-145); Total Protein 6.9 g/dL (5.7-8.2)
[2024-04-16 06:51] LABS: Alanine Aminotransferase < 9 U/L (7-40)
[2024-04-16] MEDS ORDERED: MAGNESIUM SULFATE 1GM/100ML 100 ML IV SCH (15:00)
[2024-04-16] MEDS ORDERED: POTASSIUM PHOSPHATE 22 MEQ in SODIUM CHL 0.9% 100 ML IV ONE (15:00)
== END 2024-04-16 17:51 | DRG 64 ==
LOC: ER 11:37 → DOU IN ICU 16:33 → TELE 16:33 → TELE-WESTW 23:06 → DOU IN ICU 03-30 18:25 → ICU CENTRL 03-31 17:41 → ICU WEST 04-01 02:45 → DOU IN ICU 04-02 14:35 → ICU CENTRL 04-04 09:05 → DOU IN ICU 04-04 09:10 → TELE-EAST 04-10 18:47
PROVIDERS: ADMIT Family Medicine; ATTEND Family Medicine
PROC: 5A1935Z Respiratory Ventilation, Less than 24 Consecutive Hours (ICD-10-PCS; principal; 2024-03-31)
PROC: 0BH17EZ Insertion of Endotracheal Airway into Trachea, Via Natural or Artificial Opening (ICD-10-PCS; 2024-03-31)
PROC: 0B9B8ZZ Drainage of Left Lower Lobe Bronchus, Via Natural or Artificial Opening Endoscopic (ICD-10-PCS; 2024-03-31)
PROC: 0B968ZZ Drainage of Right Lower Lobe Bronchus, Via Natural or Artificial Opening Endoscopic (ICD-10-PCS; 2024-03-31)
PROC: 5A09357 Assistance with Respiratory Ventilation, Less than 24 Consecutive Hours, Continuous Positive Airway Pressure (ICD-10-PCS; 2024-03-31)
DX: I63.9 Cerebral infarction, unspecified (principal); I21.A1 Myocardial infarction type 2; J69.0 Pneumonitis due to inhalation of food and vomit; J96.01 Acute respiratory failure with hypoxia; N17.0 Acute kidney failure with tubular necrosis; E87.0 Hyperosmolality and hypernatremia; E87.1 Hypo-osmolality and hyponatremia; E66.01 Morbid (severe) obesity due to excess calories; E83.42 Hypomagnesemia; E87.6 Hypokalemia; I11.0 Hypertensive heart disease with heart failure; I50.9 Heart failure, unspecified; N20.0 Calculus of kidney; Z68.31 Body mass index [BMI] 31.0-31.9, adult; H57.02 Anisocoria; G93.0 Cerebral cysts; D64.9 Anemia, unspecified; Z79.82 Long term (current) use of aspirin
CPT/HCPCS: 31645; 31720; 36415; 36600; 70450; 70496; 70551; 71045; 71250; 76775; 80048; 80053; 80061; 80069; 81001; 82140; 82570; 82607; 82805; 82962; 83036; 83735; 83880; 84100; 84295; 84300; 84439; 84443; 84481; 84484; 85007; 85014; 85018; 85025; 85027; 85379; 85610; 85730; 87040; 87081; 87086; 92507; 92610; 93005; 93306; 93886; 93970; 94003; 94640; 94644; 94660; 94667; 94668; 97110; 97116; 97163; 97530; G0378; J1815; J2001; J2543; J3480; J7060